=== PATIENT | male | born 1945 | race Two or more races ===

== ENCOUNTER → 2016-09-15 | Day surgery (SDC) | payer OTHER, MEDICAID ==
[~2016-09-15] MED LIST: LIDOCAINE 1% 5 ML SDV ONE
== END | disposition home or self-care (01) ==
LOC: FPAT 09:42 → FSGY 09:42
PROVIDERS: ATTEND Internal Medicine Gastroenterology
DX: Z53.09 Procedure and treatment not carried out because of other contraindication (principal)

== ENCOUNTER 2016-09-22 06:50 | Day surgery (SDC) | payer OTHER, MEDICAID ==
[2016-09-22] MEDS ORDERED: LR 1,000 ML IV ONE (07:50)
[2016-09-22] MEDS ORDERED: LIDOCAINE 2% 5 ML SDV ONE (09:12)
[2016-09-22] MEDS ORDERED: PROPOFOL 200 MG/20 ML VIAL ONE (09:12)
--- NOTE | 2016-09-23 21:20 | GPN ---
[f rep st] PROCEDURE NOTE DATE OF PROCEDURE: 09/22/2016 PROCEDURE: Esophagogastroduodenoscopy with biopsy, dilation. INDICATION: The patient is a 71-year-old male who presents with dysphagia. He has had dysphagia mainly to solid foods for the last several months. He presents for further evaluation. CONSENT: Risks, benefits, and alternatives of the procedure were discussed in great detail with the patient. Risk of infection, bleeding, perforation, and sedation were discussed. All questions were answered. Informed consent was obtained. MEDICATIONS: Propofol. Please see Anesthesiology record for details. ESTIMATED BLOOD LOSS: Insignificant. ESOPHAGOGASTRODUODENOSCOPY EXAMINATION: The Olympus upper endoscopy was introduced into the mouth and advanced to the esophagus. In the midesophagus, a ringed appearance was noted with several linear furrows. Biopsies were taken. At the gastroesophageal junction, an irregular Z-line was noted. Biopsies were taken. The stomach was entered and closely examined, including retroflexed views of the angularis, cardia and fundus. The patient was noted have a moderate-sized hiatal hernia. The mucosa in the antrum was erythematous in a patchy distribution and biopsies were taken. The duodenal bulb and second portion of the duodenum were normal in appearance. On the way out, the esophagus was empirically dilated with a 15-18 mm balloon and pulled through the esophagus and no stricture was noted. IMPRESSION: 1. Empiric dilation of the esophagus. 2. Biopsies taken of the mid esophagus to rule out eosinophilic esophagitis. 3. Gastritis status post status post biopsy. 4. Hiatal hernia. 5. Irregular Z-line. Biopsies taken. RECOMMENDATIONS: 1. Suspect the symptoms are secondary to gastroesophageal reflux disease versus other? Will recommend PPI therapy twice a day. 2. Anti-reflux lifestyle. 3. Await biopsy results. /[id number]/MODL MTDD
== END 2016-09-22 10:35 | disposition home or self-care (01) ==
LOC: FSGY 06:50
PROVIDERS: ATTEND Internal Medicine Gastroenterology
PROC: 0DB48ZX Excision of Esophagogastric Junction, Via Natural or Artificial Opening Endoscopic, Diagnostic (ICD-10-PCS; principal; 2016-09-22 09:30)
PROC: 0D758ZZ Dilation of Esophagus, Via Natural or Artificial Opening Endoscopic (ICD-10-PCS; principal; 2016-09-22 09:30)
PROC: 0DB68ZX Excision of Stomach, Via Natural or Artificial Opening Endoscopic, Diagnostic (ICD-10-PCS; principal; 2016-09-22 09:30)
PROC: 0DB28ZX Excision of Middle Esophagus, Via Natural or Artificial Opening Endoscopic, Diagnostic (ICD-10-PCS; principal; 2016-09-22 09:30)
DX: R13.10 Dysphagia, unspecified (principal); K29.70 Gastritis, unspecified, without bleeding; K21.9 Gastro-esophageal reflux disease without esophagitis; K22.8 Other specified diseases of esophagus; K44.9 Diaphragmatic hernia without obstruction or gangrene; I25.10 Atherosclerotic heart disease of native coronary artery without angina pectoris; I50.9 Heart failure, unspecified; I10 Essential (primary) hypertension; E78.5 Hyperlipidemia, unspecified; Z95.1 Presence of aortocoronary bypass graft
CPT/HCPCS: 43239; 43249; C1726; J2704

== ENCOUNTER → 2017-03-06 | Outpatient (CLI) | payer OTHER, MEDICAID | LOC: FIMAGING 07:25 → EDSTATUS 07:26 | PROVIDERS: ATTEND Physician Assistant | DX: M79.641 Pain in right hand (principal); M79.642 Pain in left hand; Y93.55 Activity, bike riding ==

== ENCOUNTER → 2017-08-31 | Outpatient (CLI) | payer OTHER, MEDICAID | LOC: BHFA 13:15 | PROVIDERS: ATTEND Internal Medicine Cardiovascular Disease | DX: I05.9 Rheumatic mitral valve disease, unspecified (principal); I07.9 Rheumatic tricuspid valve disease, unspecified ==